=== PATIENT | female | born 1980 | race Caucasian/White ===

== ENCOUNTER 2023-04-22 06:01 | Emergency (ER) | payer OTHER, SELFPAY ==
[2023-04-22 06:08] VITALS: BP 148/96; PULSE 77; RESP 18; O2SAT 99; BMI 27.4
--- NOTE | 2023-04-22 06:12 | HMH.EDGENADL ---
Discharge Plan Disposition Patient Disposition: Home, Self-Care Prescriptions Prescriptions: No Action No Known Home Medications Clinical Impressions Clinical Impression: Encounter for medical clearance for patient hold Discharge ED Provider: Shabbir Meade General Adult HPI General Chief complaint: Medical Clearance Stated complaint: Medical Clearance Time Seen by Provider: 04/22/23 06:05 Mode of Arrival: Ambulatory Source of Information: Patient and Law Enforcement Limitations: No Limitations Description of Symptoms (Recalled from ER Triage Doc. by RN): pt is here for a medical clearence. pt does not have any complaints. History of Present Illness HPI narrative: 42 yo F presenting with medical clearance for senior care. Patient states that she just got off work and was on her way home when she got pulled over. Denies drug or alcohol use currently, but patient states that she does use THC pen and place, every now and again. Last use was a couple days prior to this visit. Denies chest pain, shortness of breath, nausea or vomiting, is alert and oriented. Tearful Related Data Home Medications Medication Instructions Recorded Confirmed No Known Home Medications 04/22/23 04/22/23 Allergies Allergy/AdvReac Type Severity Reaction Status Date / Time No Known Allergies Allergy Verified 04/22/23 06:11 [facility] Disclaimer: The information contained in this section may have been updated after the patient was seen, as this information can be updated by other users. Social History Smoking Status: Current every day smoker alcohol intake: never current occupational status: employed Travel in the last 8 weeks: None ROS Obtained: Yes All systems reviewed & no additional complaints except as documented Physical Exam General General appearance: alert and in no apparent distress Head Head exam: atraumatic and normocephalic Eye Eye exam: Present normal appearance, PERRL and EOMI ENT ENT exam: Present mucous membranes moist Neck Neck exam: Present normal inspection, full ROM and trachea midline Respiratory Respiratory exam: Absent respiratory distress, wheezes, stridor, accessory muscle use or prolonged expiratory phase Cardiovascular Cardiovascular exam: Present regular rate and normal rhythm Abdominal Exam Abdominal exam: Present soft; Absent distention, tenderness, guarding, rebound, rigidity or normal bowel sounds Extremities Exam Extremities exam: Absent edema Neurological Exam Neurological exam: Present alert, oriented X3, CN II-XII intact and normal gait; Absent motor sensory deficit Skin Skin exam: Present warm and dry; Absent diaphoresis or erythema Medical Decision Making Medical Records Medical records reviewed: Yes I reviewed the patient's medical records. [place] Inquiry Pt receiving controlled substance: No [place] was queried for this patient: No Vital Signs: 04/22/23 06:08 Pulse Rate [Left] 77 Respiratory Rate 18 Blood Pressure [Right Arm] 148/96 H Blood Pressure Mean [Right Arm] 113 Blood Pressure Source [Right Arm] Automatic Cuff Blood Pressure Position [Right Arm] Sitting 02 Sat by Pulse Oximetry 99 Medical Decision Narrative: 42 yo F presenting with medical clearance for senior care. Patient states that she just got off work and was on her way home when she got pulled over. Denies drug or alcohol use currently, but patient states that she does use THC pen and place, every now and again. Last use was a couple days prior to this visit. Denies chest pain, shortness of breath, nausea or vomiting, is alert and oriented. History was obtained via conversation with patient. On arrival, patient hemodynamically stable, alert, oriented x4, appropriate, GCS 15, moving all extremities spontaneously, pupils equal and reactive to light. Full physical exam performed and significant for pupils 3 mm, reactive, equal bilaterally. Patient alert and oriented, regular, nontachy
[2023-04-22 06:16] VITALS: BP 148/96; PULSE 77; RESP 18; TEMP 36.4
== END 2023-04-22 06:27 | disposition home or self-care (01) ==
LOC: ER 06:23
PROVIDERS: Emergency Provider Emergency Medicine
DX: Z00.8 Encounter for other general examination
CPT/HCPCS: 99281